=== PATIENT | female | born 1970 | race Hispanic/Latino ===

== ENCOUNTER 2017-03-08 11:50 | Emergency (ER) | payer SELFPAY ==
[~2017-03-08] VITALS: Ht 152.4 cm; Wt 61.8 kg
[~2017-03-08 11:50] MED LIST: GLBR5T PO; METF1000 PO
[2017-03-08 11:55] VITALS: BP 134/84; PULSE 89; RESP 16; O2SAT 98
--- NOTE | 2017-03-08 12:06 | ED.REPORT ---
HPI-Eye Problem Date of Service Mar 08, 2017 ED Provider: Dr. Mcintyre Pt is a 46 y/o female w/ a hx of DM c/o intermittent right eye twitching onset yesterday. This has happened before and she does state that she is stressed. She denies any other eye symptoms, vision changes, numbness, weakness, VERDUZCO, speech changes. Nursing Notes Stated Complaint: EYE ISSUE Chief Complaint: Eye Nursing Notes Reviewed: Yes Allergies: Coded Allergies: No Known Allergies (Unverified , 02/19/16) Scheduled Glyburide (Glyburide) 5 Mg Tab 5 MG PO DAILY Metformin (Glucophage) 1,000 Mg Tablet 1,000 MG PO BID General Time Seen by MD: 12:05 Chief Complaint Other (R eye twitch) Hx Obtained From: Patient Arrived By: Walk-in Sudden in Onset?: Yes Onset Occurred: Yesterday Symptom Duration: Intermittent Progression Since Onset: Intermittent Severity: Current: No pain currently Severity: Maximum: No pain Past Medical History Past Medical History Reports: Diabetes mellitus Past Surgical History Reports: Cholecystectomy Smoking History Never Smoker Social History Alcohol Use: Denies alcohol use Drug Use: Denies drug use Ambulatory Status Independent Review of Systems Review of Systems Note: +eye twitching Constitutional: Denies: Chills, Fever Eyes: Denies: Blurred bilateral, Diplopia, Discharge bilateral, Eye pain bilateral, Photophobia, Redness bilateral, Visual loss bilateral Neurologic: Denies: Abnormal movement, Bladder dysfunction, Bowel dysfunction, Change LOC, Confusion, Dizziness, Focal weakness, Headache, Lightheaded, Numbness, Problem walking, Seizure, Shaking, Slurred speech, Spinning sensation , Syncope, Unable to speak, Vision change, Weakness Complete sys rev & neg: except as marked. Psychiatric: Reports: Stress Physical Exam Initial Vital Signs Vital Signs (First) Date Time Temp Pulse Resp B/P Pulse Ox O2 Delivery O2 Flow Rate FiO2 03/08/17 11:55 36.7 89 16 134/84 98 Room Air Initial VS: Reviewed, Vital signs normal ENT: Mucous membranes moist, Conjunctiva normal, No scleral icterus Neck: Supple, Full range of motion Respiratory: No respiratory distress Cardiovascular: Intact distal pulses Abdomen / GI: No distention Extremities: Vascular intact, Neuro intact, No swelling Skin: Warm, Dry, No cyanosis Psychiatric: Mood/affect normal, Behavior normal, Normal thought content Head / Eyes: Atraumatic, Normocephalic, PERRL, EOMI, No nystagmus, No periorbital redness, No periorbital swelling, No photophobia, No scleral icterus , Conjunctiva NL No current twitch General/Constitutional: Awake, Alert, No acute distress, Well appearing, Cooperative, Not toxic appearing Behavior: Positive: Anxious Neurologic: Oriented X3, Speech NL, No motor deficits, No sensory deficits, CN II - XII intact, Cerebellar NL, Memory NL, Gait NL Re-Eval/Medical Decision Med Decision/Clinical Course 46-year-old female history of anxiety presenting complaining of twitching below eye earlier today. Now resolved. No neurological deficits. She reports feeling extremely anxious recently. Most likely cause. I counseled patient with return precautions. Source of Hx: Old records Re-Evaluation/Progress : Time of Eval: 12:40 Re-Evaluation/Progress Note: F/U instructions and RTER warnings given. All questions addressed. Counseled Regarding: Diagnosis, Need for follow-up, When/why to return to ED Discharge & Departure Primary Impression: Eye muscle twitches Disposition: Home Discharge Condition All VS Reviewed: Yes Condition: Stable Additional Instructions: Eye muscle twitching is normal and is usually related to stress. Return to the emergency department if you experience any concerning symptoms otherwise follow-up with your primary care doctor sometime this week. Referrals: [facility] (PCP) Scribe Attestation Portions of this note were transcribed by Yasmany Win. I, Dr. Mcintyre, personally performed the history, physical exam and medical decision-making; I reviewed and confirmed the accuracy of the information in the transcribed note. Signed by Laury Whaley, 03/08/17 - [id number] copies to: [facility] Dangelo Mcintyre MD Mar 08, 2017 12:06 YASMANY WIN Mar 08, 2017 12:40
== END 2017-03-08 12:50 | disposition home or self-care (01) ==
LOC: SED 11:50
DX: R25.3 Fasciculation (principal); E11.9 Type 2 diabetes mellitus without complications; Z79.84 Long term (current) use of oral hypoglycemic drugs